=== PATIENT | male | born 1965 | race Caucasian/White ===

== ENCOUNTER 2021-07-13 00:05 | Inpatient (IN) ==
[2021-07-13] MEDS ORDERED: GLUCAGON 1 MG VIAL IM PRN (07:39)
[2021-07-13] MEDS ORDERED: DEXTROSE 10% 250 ML BAG IV PRN (11:17)
[2021-07-13] MEDS: CHLORHEXIDINE 0.12% ORAL RINSE 60 ML BOTTLE SWISH/SPIT SCH ×2 (11:18→22:23)
[2021-07-13] MEDS: SODIUM CHLORIDE 0.9% 1,000 ML IV SCH (11:18)
[2021-07-13 11:23] LABS: Basophils # 0.1 10*3/uL (0.0-0.2); Basophils % 0.6 % (0.0-0.8); Eosinophils # 0.3 10*3/uL (0.0-0.87); Eosinophils % 2.3 % (0.00-10.9); Hematocrit 43.2 VOL% (42.0-52.0); Hemoglobin 14.9 GM/DL (14.0-18.0); Immature Granulocytes Absolute 0.15 #; Lymphocytes # 2.5 10*3/uL (1.4-4.0); Lymphocytes % 17.1 % (21.2-54.2); Mean Corpuscular HGB Conc 34.5 GM/DL (32-36); Mean Corpuscular Volume 93.5 FL (87-102); Mean Platelet Volume 12.1 FL (9.6-12.0); Monocytes % 10.7 % (1.7-12.7); Neutrophils % 68.3 % (38.7-73.9); Platelet Count 133 T/CUMM (130-400); Red Blood Count 4.62 MC/CUMM (3.8-5.5); Red Cell Distribution Width 12.4 % (9.3-17.3); White Blood Count 14.5 T/CUMM (4-12)
[2021-07-13 11:38] LABS: Albumin 3.4 G/DL (3.4-5.0); Bilirubin,Total 0.5 MG/DL (0.20-1.00); Calcium 9.1 MG/DL (8.5-10.1); Osmolality,Calculated 269.7 MOS/KG (273-304); Potassium 3.7 MMOL/L (3.5-5.1); Total Protein 7.5 G/DL (6.4-8.2)
[2021-07-13 11:56] LABS: ABG Base Excess 6.4 MMOL/L (-2.5-2.5); ABG HCO3 30.2 MMOL/L (20-26); ABG Oxygen Saturation 96.3 % (95-100); ABG PCO2 43.4 MM HG (35-48); ABG PH 7.463 (7.35-7.45); ABG PO2 80.5 MM HG (80-95); ABG TCO2 26.3 MMOL/L (23-27)
[2021-07-13] MEDS ORDERED: ALUMINUM/MAGNES/SIMETH MAX STR 30 ML UDCUP PO PRN (12:15)
[2021-07-13] MEDS ORDERED: diphenhydrAMINE CAP 25 MG CAPSULE PO ONE (13:44)
[2021-07-13] MEDS ORDERED: DIAZEPAM 5 MG TABLET PO ONE ×2 (13:44→17:15)
[2021-07-13] MEDS ORDERED: MIDAZOLAM 2 MG/2 ML VIAL ONE (14:55)
[2021-07-13] MEDS ORDERED: fentaNYL 100 MCG/2 ML VIAL ONE (14:55)
[2021-07-13] MEDS: NITROGLYCERIN 2% OINT 1 INCH/GM PACK TOP SCH ×2 (15:47→18:20)
[2021-07-13] MEDS: CHLORHEXIDINE 4% SOLN 118 ML BOTTLE TOP SCH ×2 (16:13→22:24)
[2021-07-13] MEDS ORDERED: HEPARIN 5,000 UNIT/1 ML VIAL IV ONE (19:00)
[2021-07-13] MEDS ORDERED: HEPARIN DRIP 25,000 UNITS/500 ML PREMIX IV SCH (20:00)
[2021-07-13] MEDS: carvediloL 3.125 MG TABLET PO SCH (21:08)
[2021-07-13] MEDS: ASPIRIN CHEW 81 MG TABLET PO SCH (21:09)
[2021-07-13] MEDS: BENZONATATE 100 MG CAPSULE PO PRN (21:51)
[2021-07-14] MEDS: ALBUTEROL/IPRATROPIUM 3 ML NEB RESP TX SCH ×4 (01:14→19:45)
[2021-07-14] MEDS: NITROGLYCERIN 2% OINT 1 INCH/GM PACK TOP SCH ×2 (02:01→06:51)
[2021-07-14] MEDS ORDERED: PAPAVERINE 60 MG/2 ML VIAL ONE (04:19)
[2021-07-14] MEDS ORDERED: VANCOMYCIN 500 MG VIAL ONE (04:20)
[2021-07-14] MEDS ORDERED: VANCOMYCIN 1,000 MG VIAL ONE (04:20)
[2021-07-14] MEDS ORDERED: CEFUROXIME INJ 1,500 MG in SODIUM CHLORIDE 0.9% 100 ML IV ONE (05:00)
[2021-07-14 05:16] LABS: Basophils # 0.1 10*3/uL (0.0-0.2); Basophils % 0.6 % (0.0-0.8); Eosinophils # 0.5 10*3/uL (0.0-0.87); Eosinophils % 3.8 % (0.00-10.9); Hematocrit 41.7 VOL% (42.0-52.0); Immature Granulocytes Absolute 0.14 #; Lymphocytes # 4.5 10*3/uL (1.4-4.0); Lymphocytes % 31.6 % (21.2-54.2); Mean Corpuscular HGB Conc 33.6 GM/DL (32-36); Mean Corpuscular Volume 93.5 FL (87-102); Mean Platelet Volume 11.6 FL (9.6-12.0); Monocytes % 9.6 % (1.7-12.7); Neutrophils % 53.4 % (38.7-73.9); Platelet Count 116 T/CUMM (130-400); Red Blood Count 4.46 MC/CUMM (3.8-5.5); Red Cell Distribution Width 12.4 % (9.3-17.3); White Blood Count 14.2 T/CUMM (4-12)
[2021-07-14] MEDS: CHLORHEXIDINE 4% SOLN 118 ML BOTTLE TOP SCH (05:35)
[2021-07-14] MEDS ORDERED: VECURONIUM 10 MG VIAL IV ONE (05:42)
[2021-07-14] MEDS ORDERED: SEVOFLURANE 1 UNIT/15 MINUTE INH ONE ×2 (05:42→12:09)
[2021-07-14] MEDS ORDERED: NITROGLYCERIN DRIP 50 MG/250 ML BOTTLE IV ONE ×2 (05:42→12:09)
[2021-07-14] MEDS ORDERED: MIDAZOLAM 10 MG/2 ML VIAL ONE ×4 (05:43)
[2021-07-14] MEDS ORDERED: SUFentanil 250 MCG/5 ML AMP ONE ×3 (05:43→05:44)
[2021-07-14] MEDS ORDERED: PHENYLEPHRINE 10 MG/1 ML VIAL IV ONE (05:43)
[2021-07-14 05:44] LABS: Blood Urea Nitrogen 35 MG/DL (7-18); Calcium 8.9 MG/DL (8.5-10.1); Carbon Dioxide 28 MMOL/L (21-32); Estimated Glom Filtration Rate 72 ML/MIN; Glucose 116 MG/DL (74-106); Osmolality,Calculated 266.9 MOS/KG (273-304); Potassium 3.6 MMOL/L (3.5-5.1); Sodium 129 MMOL/L (136-145)
[2021-07-14] MEDS ORDERED: ePHEDrine 50 MG/ML VIAL ONE (05:53)
[2021-07-14] MEDS ORDERED: SODIUM CHLORIDE 0.9% 250 ML IV ONE (05:53)
[2021-07-14] MEDS ORDERED: ETOMIDATE 40 MG/20 ML VIAL IV ONE (05:54)
[2021-07-14] MEDS ORDERED: NOREPINEPHRINE 4 MG/4 ML VIAL IV ONE (05:59)
[2021-07-14] MEDS ORDERED: DIAZEPAM 5 MG TABLET PO ONE (06:00)
[2021-07-14] MEDS ORDERED: AMINOCAPROIC ACID 5,000 MG/20 ML VIAL ONE (06:05)
[2021-07-14] MEDS ORDERED: ALBUTEROL 2.5 MG/3 ML NEB RESP TX ONE (06:32)
[2021-07-14] MEDS ORDERED: NITROPRUSSIDE 50 MG/2 ML VIAL ONE (07:16)
[2021-07-14] MEDS ORDERED: PHENYLEPHRINE DRIP 40 MG/250 ML PREMIX IV ONE (07:16)
[2021-07-14 07:36] LABS: ABG Base Excess 2.2 MMOL/L (-2.5-2.5); ABG HCO3 26.8 MMOL/L (20-26); ABG Oxygen Saturation 99.5 % (95-100); ABG PCO2 41.6 MM HG (35-48); ABG PH 7.427 (7.35-7.45); ABG TCO2 28.1 MMOL/L (23-27); Glucose Heart Surgery 99 MG/DL (74-106); Ionized Calcium Arterial 1.07 MMOL/L (1.21-1.46); PCO2 Patient Temp Arterial 41.6 MMHG; PH Patient Temp Arterial 7.427; PO2 Patient Temp Arterial 506.1 MM HG; Patient Temperature 37 CELCIUS; Sodium Heart/CVR 130 MMOL/L (135-145)
[2021-07-14 07:38] LABS: ABG PO2 506.1 MM HG (80-95)
[2021-07-14 08:18] LABS: RBC,Urine 1 /HPF (0-4); Squamous Epithelial Cell,Urine Occasional /HPF (0-10)
[2021-07-14 08:20] LABS: Bilirubin,Urine Negative (Negative); Blood, Urine Negative (Negative); Glucose,Urine (UA) Negative (Negative); Ketones,Urine Negative (Negative); Nitrite,Urine Negative (Negative); Protein,Urine Negative; Urine Appearance Clear (Clear); Urine Color Yellow (Yellow); Urine Specific Gravity 1.025 (1.001-1.035); Urine Urobilinogen 0.2 EU/DL (<2.0)
[2021-07-14 09:02] LABS: Hematocrit Heart Surgery 29.5 PERCENT (42-52); Hemoglobin Heart Surgery 9.5 G/DL (14.0-18.0); PCO2 Patient Temp Venous 44.8 MM HG; PH Patient Temp Venous 7.422; Potassium Heart/CVR 3.9 MMOL/L (3.5-5.1); VBG Base Excess 4.2 MEQ/L (0-4); VBG HCO3 27.9 MEQ/L (24-28); VBG Oxygen Saturation 79.7 %; VBG PCO2 44.8 MMHG (41-51); VBG PH 7.422; VBG Total CO2 26.8 MMOL/L
[2021-07-14] MEDS ORDERED: CALCIUM CHLORIDE 1,000 MG/10 ML VIAL IV ONE (09:13)
[2021-07-14 09:36] LABS: Hemoglobin Heart Surgery 10.8 G/DL (14.0-18.0); PCO2 Patient Temp Venous 33.4 MM HG; PH Patient Temp Venous 7.524; Potassium Heart/CVR 3.8 MMOL/L (3.5-5.1); VBG Base Excess 3.9 MEQ/L (0-4); VBG HCO3 27.6 MEQ/L (24-28); VBG Oxygen Saturation 82.7 %; VBG PCO2 38.1 MMHG (41-51); VBG PH 7.478; VBG PO2 43.2 MMHG (17-40); VBG Total CO2 28.8 MMOL/L
[2021-07-14 10:23] LABS: ABG Base Excess 2.3 MMOL/L (-2.5-2.5); ABG HCO3 26.5 MMOL/L (20-26); ABG PCO2 38.3 MM HG (35-48); ABG PH 7.446 (7.35-7.45); ABG TCO2 23.5 MMOL/L (23-27); Glucose Heart Surgery 216 MG/DL (74-106); Hematocrit Heart Surgery 34.7 PERCENT (42-52); Hemoglobin Heart Surgery 11.2 G/DL (14.0-18.0); Ionized Calcium Arterial 1.09 MMOL/L (1.21-1.46); PCO2 Patient Temp Arterial 38.3 MMHG; PH Patient Temp Arterial 7.446; Patient Temperature 37 CELCIUS; Potassium Heart/CVR 3.7 MMOL/L (3.5-5.1); Sodium Heart/CVR 130 MMOL/L (135-145)
[2021-07-14] MEDS ORDERED: ALBUMIN 25% 25 GM/100 ML VIAL IV ONE (10:33)
[2021-07-14] MEDS ORDERED: LIDOCAINE 2% 5 ML VIAL ONE (10:33)
[2021-07-14] MEDS ORDERED: MAGNESIUM SULFATE 5 GM/10 ML VIAL IV ONE (10:33)
[2021-07-14] MEDS ORDERED: methylPREDNISolone SOD SUC 1,000 MG/8 ML VIAL ONE (10:33)
[2021-07-14] MEDS ORDERED: DEXTROSE 5% KCL 20 MEQ 20 MEQ/1,000 ML BAG IV ONE (10:34)
[2021-07-14] MEDS ORDERED: HEPARIN 10,000 UNIT/10 ML VIAL ONE (10:34)
[2021-07-14] MEDS ORDERED: FUROSEMIDE 20 MG/2 ML VIAL ONE (10:34)
[2021-07-14] MEDS ORDERED: SODIUM BICARBONATE 50 MEQ/50 ML VIAL IV ONE (10:34)
[2021-07-14] MEDS ORDERED: PROTAMINE SULFATE 250 MG/25 ML VIAL IV ONE (10:34)
[2021-07-14] MEDS ORDERED: MANNITOL 100 GM/500 ML BAG IV ONE (10:34)
[2021-07-14] MEDS ORDERED: PROTAMINE SULFATE 50 MG/5 ML VIAL IV ONE (10:34)
[2021-07-14] MEDS ORDERED: MAGNESIUM SULF RIDER 4 GM/100 ML PREMIX IV PRN (10:57)
[2021-07-14] MEDS ORDERED: INSULIN REGULAR 100 UNIT/ML IV ONE (10:57)
[2021-07-14] MEDS ORDERED: POTASSIUM CHLORIDE RIDER 10 MEQ/100 ML PREMIX IV PRN (10:57)
[2021-07-14] MEDS ORDERED: VECURONIUM 10 MG VIAL IV PRN ×2 (10:57)
[2021-07-14] MEDS ORDERED: ONDANSETRON 4 MG/2 ML VIAL IV PRN (10:57)
[2021-07-14] MEDS ORDERED: LACTATED RINGERS 250 ML IV PRN (10:57)
[2021-07-14] MEDS ORDERED: MIDAZOLAM 10 MG/2 ML VIAL IV PRN (10:57)
[2021-07-14] MEDS ORDERED: POTASSIUM CHLORIDE RIDER 20 MEQ/100 ML PREMIX IV PRN (10:57)
[2021-07-14] MEDS ORDERED: INSULIN REGULAR 100 UNIT/ML IV PRN (10:57)
[2021-07-14] MEDS ORDERED: MAGNESIUM SULF RIDER 2 GM/50 ML PREMIX IV PRN (10:57)
[2021-07-14] MEDS ORDERED: ACETAMINOPHEN 650 MG SUPP RECTAL PRN (10:57)
[2021-07-14] MEDS ORDERED: CALCIUM CHLORIDE 1,000 MG/10 ML SYRINGE IV PRN (10:57)
[2021-07-14] MEDS ORDERED: MORPHINE 10 MG/1 ML VIAL IV PRN (10:57)
[2021-07-14] MEDS ORDERED: CHLORHEXIDINE 4% SOLN 118 ML BOTTLE TOP PRN (10:57)
[2021-07-14] MEDS ORDERED: PHENYLEPHRINE DRIP 40 MG/250 ML PREMIX IV PRN (10:57)
[2021-07-14] MEDS ORDERED: NITROPRUSSIDE 100 MG in DEXTROSE 5% 250 ML IV PRN (10:57)
[2021-07-14] MEDS ORDERED: DEXTROSE 10% 250 ML BAG IV PRN ×2 (10:57)
[2021-07-14] MEDS ORDERED: INSULIN REGULAR DRIP 100 ML IV SCH (11:00)
[2021-07-14] MEDS ORDERED: SODIUM CHLORIDE 0.45% 1,000 ML IV SCH (11:00)
[2021-07-14] MEDS: SODIUM CHLORIDE 0.45% 1,000 ML IV SCH (11:42)
[2021-07-14 11:48] LABS: ABG Base Excess 1.9 MMOL/L (-2.5-2.5); ABG HCO3 26.1 MMOL/L (20-26); ABG Oxygen Saturation 97.1 % (95-100); ABG PCO2 41.4 MM HG (35-48); ABG PH 7.416 (7.35-7.45); ABG PO2 91.3 MM HG (80-95); ABG TCO2 23.6 MMOL/L (23-27); Glucose Heart Surgery 177 MG/DL (74-106); Hematocrit Heart Surgery 36.6 PERCENT (42-52); Hemoglobin Heart Surgery 11.9 G/DL (14.0-18.0); Potassium Heart/CVR 3.6 MMOL/L (3.5-5.1)
[2021-07-14 11:52] LABS: Basophils # 0.1 10*3/uL (0.0-0.2); Basophils % 0.5 % (0.0-0.8); Eosinophils # 0.2 10*3/uL (0.0-0.87); Eosinophils % 2.2 % (0.00-10.9); Hematocrit 33.9 VOL% (42.0-52.0); Immature Granulocytes % 1.1 %; Immature Granulocytes Absolute 0.12 #; Lymphocytes # 1.5 10*3/uL (1.4-4.0); Mean Corpuscular HGB Conc 35.1 GM/DL (32-36); Mean Corpuscular Volume 91.6 FL (87-102); Monocytes % 10.2 % (1.7-12.7); Red Cell Distribution Width 12.5 % (9.3-17.3); White Blood Count 10.8 T/CUMM (4-12)
[2021-07-14 11:58] LABS: INR 1.1; PT Patient Result 12.4 SECS (10.5-12.0); Partial Thromboplastin Time 28.2 SECS (23.8-32.1)
[2021-07-14] MEDS: LACTATED RINGERS 1,000 ML IV PRN ×5 (12:00→19:10)
[2021-07-14 12:06] LABS: Hemoglobin 11.9 GM/DL (14.0-18.0); Platelet Count 73 T/CUMM (130-400)
[2021-07-14] MEDS: ASPIRIN CHEW 81 MG TABLET PO SCH (12:08)
[2021-07-14] MEDS ORDERED: HEPARIN/NACL 0.9% 2 UNITS/ML 1,000 UNIT/500 ML BAG IV ONE (12:09)
[2021-07-14] MEDS ORDERED: SODIUM CHLORIDE 0.9% 1,000 ML IV ONE (12:09)
[2021-07-14] MEDS ORDERED: LACTATED RINGERS 1,000 ML IV ONE (12:09)
[2021-07-14] MEDS: PANTOPRAZOLE 40 MG VIAL IV SCH (12:10)
[2021-07-14 12:57] LABS: CKMB % 9.7 %
[2021-07-14 13:01] LABS: Albumin 2.6 G/DL (3.4-5.0); Bilirubin,Total 0.8 MG/DL (0.20-1.00); Calcium 7.4 MG/DL (8.5-10.1); Osmolality,Calculated 277.2 MOS/KG (273-304); Potassium 4.4 MMOL/L (3.5-5.1); Total Protein 5.4 G/DL (6.4-8.2)
[2021-07-14 13:03] LABS: High Sensitive Troponin I* 5124.1 ng/L (0-78)
[2021-07-14] MEDS: ALBUMIN 5% 12.5 GM/250 ML VIAL IV PRN ×3 (13:32→22:16)
[2021-07-14] MEDS ORDERED: AMIODARONE INJ 100 MG in DEXTROSE 5% 100 ML IV ONE (13:34)
[2021-07-14 13:56] LABS: ABG Base Excess 0.7 MMOL/L (-2.5-2.5); ABG Oxygen Saturation 97.3 % (95-100); ABG PCO2 43.3 MM HG (35-48); ABG PH 7.386 (7.35-7.45); ABG TCO2 23.2 MMOL/L (23-27); Glucose Heart Surgery 209 MG/DL (74-106); Hematocrit Heart Surgery 35.1 PERCENT (42-52); Hemoglobin Heart Surgery 11.4 G/DL (14.0-18.0); Potassium Heart/CVR 4.9 MMOL/L (3.5-5.1)
[2021-07-14] MEDS ORDERED: AMIODARONE INJ 450 MG in DEXTROSE 5% 241 ML IV SCH (14:00)
[2021-07-14] MEDS: MIDAZOLAM 2 MG/2 ML VIAL IV PRN ×2 (15:08→16:44)
[2021-07-14 15:25] LABS: ABG Base Excess -1.2 MMOL/L (-2.5-2.5); ABG HCO3 23.4 MMOL/L (20-26); ABG Oxygen Saturation 97.3 % (95-100); ABG PH 7.328 (7.35-7.45); ABG TCO2 22.8 MMOL/L (23-27); Glucose Heart Surgery 148 MG/DL (74-106); Potassium Heart/CVR 4.5 MMOL/L (3.5-5.1)
[2021-07-14 16:26] LABS: ABG Base Excess -0.1 MMOL/L (-2.5-2.5); ABG HCO3 24.4 MMOL/L (20-26); ABG Oxygen Saturation 96.9 % (95-100); ABG PCO2 43.1 MM HG (35-48); ABG PH 7.376 (7.35-7.45); ABG PO2 92.2 MM HG (80-95); ABG TCO2 22.9 MMOL/L (23-27); Glucose Heart Surgery 122 MG/DL (74-106); Hematocrit Heart Surgery 31.8 PERCENT (42-52); Hemoglobin Heart Surgery 10.3 G/DL (14.0-18.0); Potassium Heart/CVR 4.5 MMOL/L (3.5-5.1)
[2021-07-14 16:29] LABS: VBG Base Excess 0.5 MEQ/L (0-4); VBG HCO3 24.1 MEQ/L (24-28); VBG PCO2 51.9 MMHG (41-51); VBG PH 7.327; VBG PO2 34.2 MMHG (17-40); VBG Total CO2 25.1 MMOL/L
[2021-07-14] MEDS ORDERED: MIDAZOLAM 2 MG/2 ML VIAL IV ONE (17:20)
[2021-07-14] MEDS ORDERED: DEXMEDETOMIDINE 200 MCG in SODIUM CHLORIDE 0.9% 48 ML IV PRN (18:13)
[2021-07-14] MEDS: CEFUROXIME INJ 1,500 MG in SODIUM CHLORIDE 0.9% 100 ML IV SCH (18:19)
[2021-07-14 20:13] LABS: ABG Base Excess 0.4 MMOL/L (-2.5-2.5); ABG HCO3 24.7 MMOL/L (20-26); ABG Oxygen Saturation 96.3 % (95-100); ABG PCO2 42.8 MM HG (35-48); ABG PH 7.384 (7.35-7.45); ABG PO2 85.2 MM HG (80-95); ABG TCO2 23.1 MMOL/L (23-27); Glucose Heart Surgery 115 MG/DL (74-106); Hematocrit Heart Surgery 32.7 PERCENT (42-52); Hemoglobin Heart Surgery 10.6 G/DL (14.0-18.0); Potassium Heart/CVR 4.6 MMOL/L (3.5-5.1)
[2021-07-14 21:42] LABS: ABG Base Excess -0.3 MMOL/L (-2.5-2.5); ABG HCO3 24.1 MMOL/L (20-26); ABG Oxygen Saturation 96.2 % (95-100); ABG PCO2 47.2 MM HG (35-48); ABG PH 7.345 (7.35-7.45); ABG PO2 88.8 MM HG (80-95); ABG TCO2 23.3 MMOL/L (23-27); Glucose Heart Surgery 114 MG/DL (74-106); Hematocrit Heart Surgery 33.4 PERCENT (42-52); Hemoglobin Heart Surgery 10.8 G/DL (14.0-18.0); Potassium Heart/CVR 4.7 MMOL/L (3.5-5.1)
[2021-07-14] MEDS: CHLORHEXIDINE 0.12% ORAL RINSE 60 ML BOTTLE SWISH/SPIT SCH (21:58)
[2021-07-14] MEDS: AMIODARONE INJ 450 MG in DEXTROSE 5% 241 ML IV SCH ×2 (22:05→22:50)
[2021-07-14 23:46] LABS: ABG Base Excess -0.7 MMOL/L (-2.5-2.5); ABG HCO3 23.9 MMOL/L (20-26); ABG Oxygen Saturation 97.2 % (95-100); ABG PCO2 39.5 MM HG (35-48); ABG PO2 103.7 MM HG (80-95); ABG TCO2 25.1 MMOL/L (23-27); Glucose Heart Surgery 105 MG/DL (74-106); Hemoglobin Heart Surgery 10.7 G/DL (14.0-18.0); Potassium Heart/CVR 4.6 MMOL/L (3.5-5.1)
[2021-07-15 00:25] LABS: ABG Base Excess -0.4 MMOL/L (-2.5-2.5); ABG Oxygen Saturation 95.1 % (95-100); ABG PCO2 42.9 MM HG (35-48); ABG PH 7.372 (7.35-7.45); ABG PO2 79.4 MM HG (80-95); ABG TCO2 22.7 MMOL/L (23-27); Glucose Heart Surgery 115 MG/DL (74-106); Hematocrit Heart Surgery 31.7 PERCENT (42-52); Hemoglobin Heart Surgery 10.3 G/DL (14.0-18.0); Potassium Heart/CVR 4.6 MMOL/L (3.5-5.1)
[2021-07-15] MEDS: ALBUTEROL/IPRATROPIUM 3 ML NEB RESP TX SCH ×4 (01:35→20:25)
[2021-07-15 02:15] LABS: ABG Base Excess -1.1 MMOL/L (-2.5-2.5); ABG HCO3 23.5 MMOL/L (20-26); ABG Oxygen Saturation 97.5 % (95-100); ABG PCO2 41.7 MM HG (35-48); ABG PH 7.371 (7.35-7.45); ABG TCO2 21.9 MMOL/L (23-27); Glucose Heart Surgery 116 MG/DL (74-106); Hematocrit Heart Surgery 32.4 PERCENT (42-52); Hemoglobin Heart Surgery 10.5 G/DL (14.0-18.0); Potassium Heart/CVR 4.7 MMOL/L (3.5-5.1)
[2021-07-15 02:34] LABS: CKMB % 6.7 %
[2021-07-15 02:35] LABS: High Sensitive Troponin I* 4366.3 ng/L (0-78)
[2021-07-15 03:22] LABS: ABG Base Excess -1.6 MMOL/L (-2.5-2.5); ABG Oxygen Saturation 97.3 % (95-100); ABG PCO2 40.3 MM HG (35-48); ABG PH 7.373 (7.35-7.45); ABG PO2 94.9 MM HG (80-95); ABG TCO2 21.3 MMOL/L (23-27); Glucose Heart Surgery 121 MG/DL (74-106); Hematocrit Heart Surgery 31.6 PERCENT (42-52); Hemoglobin Heart Surgery 10.2 G/DL (14.0-18.0); Potassium Heart/CVR 4.5 MMOL/L (3.5-5.1)
[2021-07-15 03:32] LABS: Basophils % 0.1 % (0.0-0.8); Immature Granulocytes Absolute 0.14 #; Lymphocytes % 7.1 % (21.2-54.2); Mean Corpuscular HGB Conc 33.3 GM/DL (32-36); Mean Corpuscular Volume 94.9 FL (87-102); Mean Platelet Volume 12.7 FL (9.6-12.0); Neutrophils % 83.8 % (38.7-73.9); Platelet Count 73 T/CUMM (130-400); Red Blood Count 3.16 MC/CUMM (3.8-5.5); Red Cell Distribution Width 12.5 % (9.3-17.3); White Blood Count 13.9 T/CUMM (4-12)
[2021-07-15 03:47] LABS: Albumin 3.2 G/DL (3.4-5.0); Bilirubin,Direct 0.19 MG/DL (0.0-0.20); Bilirubin,Total 0.7 MG/DL (0.20-1.00); Calcium 7.7 MG/DL (8.5-10.1); Osmolality,Calculated 276.1 MOS/KG (273-304); Potassium 4.6 MMOL/L (3.5-5.1); Total Protein 6.1 G/DL (6.4-8.2)
[2021-07-15 04:12] LABS: ABG Base Excess -2.7 MMOL/L (-2.5-2.5); ABG HCO3 21.7 MMOL/L (20-26); ABG Oxygen Saturation 96.2 % (95-100); ABG PCO2 36.1 MM HG (35-48); ABG PH 7.396 (7.35-7.45); ABG PO2 86.8 MM HG (80-95); ABG TCO2 22.8 MMOL/L (23-27); Glucose Heart Surgery 124 MG/DL (74-106); Potassium Heart/CVR 4.6 MMOL/L (3.5-5.1)
[2021-07-15] MEDS ORDERED: FUROSEMIDE 40 MG/4 ML VIAL IV ONE (04:23)
[2021-07-15 04:31] LABS: Hypochromia Slight; Microcytosis Slight; Platelet Estimate Decreased
[2021-07-15] MEDS: CEFUROXIME INJ 1,500 MG in SODIUM CHLORIDE 0.9% 100 ML IV SCH ×2 (07:01→18:07)
[2021-07-15] MEDS: SODIUM CHLORIDE 0.9% 1,000 ML IV SCH (08:06)
[2021-07-15] MEDS: CHLORHEXIDINE 0.12% ORAL RINSE 60 ML BOTTLE SWISH/SPIT SCH ×3 (08:06→21:50)
[2021-07-15] MEDS: carvediloL 3.125 MG TABLET PO SCH (08:06)
[2021-07-15] MEDS: INSULIN REGULAR 100 UNIT/ML SUBCUT SCH ×4 (08:34→21:50)
[2021-07-15] MEDS: PANTOPRAZOLE 40 MG VIAL IV SCH (09:58)
[2021-07-15] MEDS ORDERED: ASPIRIN 325 MG TABLET PO SCH (10:30)
[2021-07-15] MEDS: AMIODARONE 200 MG TABLET PO SCH ×2 (11:16→21:47)
[2021-07-15] MEDS: METOPROLOL TARTRATE 25 MG TABLET PO SCH ×2 (11:16→21:47)
[2021-07-15] MEDS: AMIODARONE INJ 450 MG in DEXTROSE 5% 241 ML IV SCH (13:13)
[2021-07-15] MEDS: ASPIRIN CHEW 81 MG TABLET PO SCH (13:17)
[2021-07-15 14:20] LABS: CKMB % 2.9 %; High Sensitive Troponin I* 2753.6 ng/L (0-78)
[2021-07-15] MEDS: BENZONATATE 100 MG CAPSULE PO PRN (21:47)
[2021-07-15] MEDS: ATORVASTATIN 40 MG TABLET PO SCH (21:47)
[2021-07-16] MEDS: ALBUTEROL/IPRATROPIUM 3 ML NEB RESP TX SCH ×4 (00:30→19:35)
[2021-07-16 04:24] LABS: Basophils % 0.1 % (0.0-0.8); Eosinophils % 0.1 % (0.00-10.9); Hematocrit 30.9 VOL% (42.0-52.0); Hemoglobin 10.3 GM/DL (14.0-18.0); Immature Granulocytes % 0.8 %; Immature Granulocytes Absolute 0.13 #; Lymphocytes # 2.3 10*3/uL (1.4-4.0); Lymphocytes % 14.3 % (21.2-54.2); Mean Corpuscular HGB Conc 33.3 GM/DL (32-36); Mean Corpuscular Volume 95.1 FL (87-102); Mean Platelet Volume 12.4 FL (9.6-12.0); Monocytes % 11.4 % (1.7-12.7); Neutrophils % 73.3 % (38.7-73.9); Platelet Count 77 T/CUMM (130-400); Red Blood Count 3.25 MC/CUMM (3.8-5.5); Red Cell Distribution Width 12.6 % (9.3-17.3); White Blood Count 15.8 T/CUMM (4-12)
[2021-07-16 04:46] LABS: Hypochromia Slight; Microcytosis Slight; Platelet Estimate Decreased
[2021-07-16 04:49] LABS: Albumin 2.8 G/DL (3.4-5.0); Bilirubin,Direct 0.18 MG/DL (0.0-0.20); Bilirubin,Total 0.6 MG/DL (0.20-1.00); Osmolality,Calculated 267.7 MOS/KG (273-304); Potassium 4.6 MMOL/L (3.5-5.1); Total Protein 5.9 G/DL (6.4-8.2)
[2021-07-16] MEDS: METOPROLOL SUCCINATE XL 25 MG TABLET PO SCH (08:07)
[2021-07-16] MEDS: CHLORHEXIDINE 0.12% ORAL RINSE 60 ML BOTTLE SWISH/SPIT SCH ×3 (08:07→20:41)
[2021-07-16] MEDS: PANTOPRAZOLE 40 MG VIAL IV SCH (08:07)
[2021-07-16] MEDS: FUROSEMIDE 40 MG/4 ML VIAL IV SCH (08:07)
[2021-07-16] MEDS: AMIODARONE 200 MG TABLET PO SCH (08:07)
[2021-07-16] MEDS ORDERED: POTASSIUM CHLORIDE 20 MEQ TABLET PO PRN (08:26)
[2021-07-16] MEDS ORDERED: ACETAMINOPHEN 325 MG TABLET PO PRN (08:26)
[2021-07-16] MEDS ORDERED: ZALEPLON 5 MG CAPSULE PO PRN (08:26)
[2021-07-16] MEDS ORDERED: MAGNESIUM SULF RIDER 2 GM/50 ML PREMIX IV PRN (08:26)
[2021-07-16] MEDS ORDERED: MAGNESIUM SULF RIDER 4 GM/100 ML PREMIX IV PRN (08:26)
[2021-07-16] MEDS ORDERED: MAGNESIUM HYDROXIDE SUSP 30 ML UDCUP PO PRN (08:26)
[2021-07-16] MEDS ORDERED: ALUMINUM/MAGNES/SIMETH MAX STR 30 ML UDCUP PO PRN (08:26)
[2021-07-16] MEDS ORDERED: DEXTROSE 10% 250 ML BAG IV PRN (08:26)
[2021-07-16] MEDS ORDERED: GLUCAGON 1 MG VIAL IM PRN (08:26)
[2021-07-16] MEDS ORDERED: ONDANSETRON 4 MG/2 ML VIAL IV PRN (08:26)
[2021-07-16] MEDS: PANTOPRAZOLE 40 MG TABLET PO SCH (08:47)
[2021-07-16] MEDS: BUDESONIDE/FORMOTEROL 160-4.5 INHALER 6 GM INH SCH (08:47)
[2021-07-16] MEDS: FERROUS SULFATE 325 MG TABLET PO SCH (08:47)
[2021-07-16] MEDS: DOCUSATE SODIUM 100 MG CAPSULE PO SCH (08:47)
[2021-07-16] MEDS: INSULIN REGULAR 100 UNIT/ML SUBCUT SCH (08:48)
[2021-07-16] MEDS ORDERED: AMIODARONE INJ 150 MG in DEXTROSE 5% 100 ML IV ONE (12:04)
[2021-07-16] MEDS ORDERED: AMIODARONE 150 MG/3 ML VIAL ONE (12:06)
[2021-07-16] MEDS ORDERED: NITROGLYCERIN SL 0.4 MG TABLET SL PRN (12:27)
[2021-07-16] MEDS ORDERED: AMIODARONE INJ 450 MG in DEXTROSE 5% 241 ML IV SCH (12:30)
[2021-07-16] MEDS: ASPIRIN EC 81 MG TABLET PO SCH (13:11)
[2021-07-16] MEDS: VALSARTAN 80 MG TABLET PO SCH (13:11)
[2021-07-16] MEDS: ATORVASTATIN 40 MG TABLET PO SCH (20:41)
[2021-07-16] MEDS: SODIUM CHLORIDE 0.45% 1,000 ML IV SCH (22:55)
[2021-07-17] MEDS: ALBUTEROL/IPRATROPIUM 3 ML NEB RESP TX SCH ×4 (01:20→19:40)
[2021-07-17 05:35] LABS: Basophils % 0.3 % (0.0-0.8); Hematocrit 30.4 VOL% (42.0-52.0); Hemoglobin 10.1 GM/DL (14.0-18.0); Immature Granulocytes % 1.8 %; Immature Granulocytes Absolute 0.29 #; Lymphocytes % 12.3 % (21.2-54.2); Mean Corpuscular HGB Conc 33.2 GM/DL (32-36); Mean Corpuscular Volume 94.7 FL (87-102); Mean Platelet Volume 12.9 FL (9.6-12.0); Monocytes % 9.8 % (1.7-12.7); Neutrophils % 75.8 % (38.7-73.9); Platelet Count 90 T/CUMM (130-400); Red Blood Count 3.21 MC/CUMM (3.8-5.5); Red Cell Distribution Width 12.4 % (9.3-17.3)
[2021-07-17] MEDS: oxyCODONE/ACETAMINOPHEN 5-325 MG TABLET PO PRN (05:46)
[2021-07-17 05:48] LABS: Alanine Aminotransferase 38 U/L (16-61); Albumin 2.6 G/DL (3.4-5.0); Alkaline Phosphatase 51 U/L (45-117); Aspartate Amino Transferase 17 U/L (0-37); Bilirubin,Indirect 0.3 MG/DL (0.0-1.0); Total Protein 5.5 G/DL (6.4-8.2)
[2021-07-17 06:01] LABS: Albumin 2.6 G/DL (3.4-5.0); Bilirubin,Direct 0.18 MG/DL (0.0-0.20); Bilirubin,Total 0.4 MG/DL (0.20-1.00); Calcium 8.6 MG/DL (8.5-10.1); Osmolality,Calculated 267.7 MOS/KG (273-304); Potassium 4.3 MMOL/L (3.5-5.1)
[2021-07-17 06:29] LABS: Platelet Estimate Decreased
[2021-07-17] MEDS: ASPIRIN EC 81 MG TABLET PO SCH (10:44)
[2021-07-17] MEDS: FERROUS SULFATE 325 MG TABLET PO SCH (10:45)
[2021-07-17] MEDS: AMIODARONE 200 MG TABLET PO SCH ×2 (10:45→22:51)
[2021-07-17] MEDS: PANTOPRAZOLE 40 MG TABLET PO SCH (10:45)
[2021-07-17] MEDS: VALSARTAN 80 MG TABLET PO SCH (10:45)
[2021-07-17] MEDS: DOCUSATE SODIUM 100 MG CAPSULE PO SCH (10:45)
[2021-07-17] MEDS: METOPROLOL SUCCINATE XL 25 MG TABLET PO SCH (10:46)
[2021-07-17] MEDS: CHLORHEXIDINE 0.12% ORAL RINSE 60 ML BOTTLE SWISH/SPIT SCH ×2 (10:46→22:52)
[2021-07-17] MEDS: ASCORBIC ACID 500 MG TABLET PO SCH ×2 (10:46→22:51)
[2021-07-17] MEDS: FUROSEMIDE 40 MG/4 ML VIAL IV SCH (10:52)
[2021-07-17] MEDS: BUDESONIDE/FORMOTEROL 160-4.5 INHALER 6 GM INH SCH (11:13)
[2021-07-17] MEDS: ATORVASTATIN 40 MG TABLET PO SCH (22:51)
[2021-07-18] MEDS: ALBUTEROL/IPRATROPIUM 3 ML NEB RESP TX SCH ×4 (00:14→18:52)
[2021-07-18 06:30] LABS: Basophils # 0.1 10*3/uL (0.0-0.2); Basophils % 0.4 % (0.0-0.8); Eosinophils # 0.4 10*3/uL (0.0-0.87); Eosinophils % 2.2 % (0.00-10.9); Hematocrit 32.4 VOL% (42.0-52.0); Hemoglobin 10.7 GM/DL (14.0-18.0); Immature Granulocytes % 2.9 %; Immature Granulocytes Absolute 0.46 #; Lymphocytes # 4.6 10*3/uL (1.4-4.0); Lymphocytes % 28.8 % (21.2-54.2); Mean Corpuscular Volume 95.9 FL (87-102); Mean Platelet Volume 11.7 FL (9.6-12.0); Monocytes % 10.1 % (1.7-12.7); NRBC # 0.02 10*3/uL; Neutrophils % 55.6 % (38.7-73.9); Platelet Count 143 T/CUMM (130-400); Red Blood Count 3.38 MC/CUMM (3.8-5.5); Red Cell Distribution Width 12.8 % (9.3-17.3); White Blood Count 16.1 T/CUMM (4-12)
[2021-07-18] MEDS: oxyCODONE/ACETAMINOPHEN 5-325 MG TABLET PO PRN (06:38)
[2021-07-18 06:43] LABS: Osmolality,Calculated 277.8 MOS/KG (273-304)
[2021-07-18 06:49] LABS: Alanine Aminotransferase 55 U/L (16-61); Albumin 2.4 G/DL (3.4-5.0); Alkaline Phosphatase 72 U/L (45-117); Aspartate Amino Transferase 25 U/L (0-37); Bilirubin,Direct < 0.100 MG/DL (0.0-0.20); Bilirubin,Indirect 1.3 MG/DL (0.0-1.0); Blood Urea Nitrogen 24 MG/DL (7-18); Calcium 8.1 MG/DL (8.5-10.1); Carbon Dioxide 31 MMOL/L (21-32); Estimated Glom Filtration Rate 98 ML/MIN; Glucose 120 MG/DL (74-106); Sodium 136 MMOL/L (136-145)
[2021-07-18] MEDS: CHLORHEXIDINE 0.12% ORAL RINSE 60 ML BOTTLE SWISH/SPIT SCH ×2 (10:51→20:57)
[2021-07-18] MEDS: BUDESONIDE/FORMOTEROL 160-4.5 INHALER 6 GM INH SCH (10:51)
[2021-07-18] MEDS: VALSARTAN 80 MG TABLET PO SCH (10:52)
[2021-07-18] MEDS: AMIODARONE 200 MG TABLET PO SCH ×2 (10:52→20:56)
[2021-07-18] MEDS: FERROUS SULFATE 325 MG TABLET PO SCH (10:53)
[2021-07-18] MEDS: ASPIRIN EC 81 MG TABLET PO SCH (10:53)
[2021-07-18] MEDS: PANTOPRAZOLE 40 MG TABLET PO SCH (10:53)
[2021-07-18] MEDS: METOPROLOL SUCCINATE XL 25 MG TABLET PO SCH (10:53)
[2021-07-18] MEDS: ASCORBIC ACID 500 MG TABLET PO SCH ×2 (10:53→20:57)
[2021-07-18] MEDS: DOCUSATE SODIUM 100 MG CAPSULE PO SCH (10:53)
[2021-07-18] MEDS: LACTULOSE 20 GM/30 ML UDCUP PO PRN (14:58)
[2021-07-18] MEDS: ATORVASTATIN 40 MG TABLET PO SCH (20:56)
[2021-07-19] MEDS: ALBUTEROL/IPRATROPIUM 3 ML NEB RESP TX SCH ×4 (00:45→19:24)
[2021-07-19 06:31] LABS: Basophils # 0.1 10*3/uL (0.0-0.2); Basophils % 0.8 % (0.0-0.8); Eosinophils # 0.6 10*3/uL (0.0-0.87); Eosinophils % 4.3 % (0.00-10.9); Hematocrit 30.9 VOL% (42.0-52.0); Hemoglobin 10.2 GM/DL (14.0-18.0); Immature Granulocytes % 4.1 %; Immature Granulocytes Absolute 0.58 #; Lymphocytes # 4.2 10*3/uL (1.4-4.0); Lymphocytes % 29.5 % (21.2-54.2); Mean Corpuscular Volume 95.4 FL (87-102); Mean Platelet Volume 11.7 FL (9.6-12.0); Monocytes % 8.9 % (1.7-12.7); Neutrophils % 52.4 % (38.7-73.9); Red Blood Count 3.24 MC/CUMM (3.8-5.5); Red Cell Distribution Width 12.7 % (9.3-17.3); White Blood Count 14.1 T/CUMM (4-12)
[2021-07-19 06:35] LABS: Platelet Count 129 T/CUMM (130-400)
[2021-07-19 06:53] LABS: Eosinophils 4 % (0-10); Hypochromia Slight; Lymphocytes 27 % (20-55); Microcytosis Slight; Platelet Estimate Normal; Segmented Neutrophils 60 % (50-85); Total Cells Counted 100
[2021-07-19 07:02] LABS: Calcium 7.7 MG/DL (8.5-10.1); Potassium 4.2 MMOL/L (3.5-5.1)
[2021-07-19 07:05] LABS: Albumin 2.2 G/DL (3.4-5.0); Bilirubin,Total 0.5 MG/DL (0.20-1.00); Calcium 8.1 MG/DL (8.5-10.1); Osmolality,Calculated 271.2 MOS/KG (273-304); Potassium 3.9 MMOL/L (3.5-5.1); Total Protein 5.5 G/DL (6.4-8.2)
[2021-07-19] MEDS: CHLORHEXIDINE 0.12% ORAL RINSE 60 ML BOTTLE SWISH/SPIT SCH ×2 (10:06→21:11)
[2021-07-19] MEDS: BUDESONIDE/FORMOTEROL 160-4.5 INHALER 6 GM INH SCH (10:06)
[2021-07-19] MEDS: VALSARTAN 80 MG TABLET PO SCH (10:07)
[2021-07-19] MEDS: LACTULOSE 20 GM/30 ML UDCUP PO PRN (10:07)
[2021-07-19] MEDS: POLYETHYLENE GLYCOL POWDER 17 GM PACK PO SCH (10:07)
[2021-07-19] MEDS: ASCORBIC ACID 500 MG TABLET PO SCH ×2 (10:07→21:10)
[2021-07-19] MEDS: FUROSEMIDE 40 MG TABLET PO SCH (10:08)
[2021-07-19] MEDS: ASPIRIN EC 81 MG TABLET PO SCH (10:08)
[2021-07-19] MEDS: PANTOPRAZOLE 40 MG TABLET PO SCH (10:08)
[2021-07-19] MEDS: DOCUSATE SODIUM 100 MG CAPSULE PO SCH (10:08)
[2021-07-19] MEDS: FERROUS SULFATE 325 MG TABLET PO SCH (10:08)
[2021-07-19] MEDS: AMIODARONE 200 MG TABLET PO SCH ×2 (10:08→21:11)
[2021-07-19] MEDS: METOPROLOL SUCCINATE XL 25 MG TABLET PO SCH (10:08)
[2021-07-19] MEDS: ATORVASTATIN 40 MG TABLET PO SCH (21:10)
[2021-07-20 06:11] LABS: Basophils # 0.1 10*3/uL (0.0-0.2); Basophils % 0.7 % (0.0-0.8); Eosinophils # 0.7 10*3/uL (0.0-0.87); Eosinophils % 4.5 % (0.00-10.9); Hematocrit 31.3 VOL% (42.0-52.0); Hemoglobin 10.4 GM/DL (14.0-18.0); Immature Granulocytes % 3.9 %; Immature Granulocytes Absolute 0.57 #; Lymphocytes # 3.7 10*3/uL (1.4-4.0); Lymphocytes % 25.7 % (21.2-54.2); Mean Corpuscular HGB Conc 33.2 GM/DL (32-36); Mean Corpuscular Volume 94.6 FL (87-102); Mean Platelet Volume 11.6 FL (9.6-12.0); Monocytes % 8.3 % (1.7-12.7); Neutrophils % 56.9 % (38.7-73.9); Platelet Count 152 T/CUMM (130-400); Red Blood Count 3.31 MC/CUMM (3.8-5.5); Red Cell Distribution Width 12.8 % (9.3-17.3); White Blood Count 14.5 T/CUMM (4-12)
[2021-07-20 06:30] LABS: Alanine Aminotransferase 44 U/L (16-61); Albumin 2.3 G/DL (3.4-5.0); Alkaline Phosphatase 60 U/L (45-117); Aspartate Amino Transferase 20 U/L (0-37); Bilirubin,Indirect 0.4 MG/DL (0.0-1.0); Blood Urea Nitrogen 20 MG/DL (7-18); Carbon Dioxide 28 MMOL/L (21-32); Eosinophils 8 % (0-10); Estimated Glom Filtration Rate 98 ML/MIN; Glucose 107 MG/DL (74-106); Hypochromia 1+; Lymphocytes 24 % (20-55); Microcytosis 1+; Osmolality,Calculated 270.2 MOS/KG (273-304); Platelet Estimate Adequate; Potassium 4.1 MMOL/L (3.5-5.1); Segmented Neutrophils 53 % (50-85); Sodium 134 MMOL/L (136-145); Total Cells Counted 100; Total Protein 5.7 G/DL (6.4-8.2)
[2021-07-20] MEDS: ALBUTEROL/IPRATROPIUM 3 ML NEB RESP TX SCH ×2 (08:17→13:11)
[2021-07-20 09:00] VITALS: BP 95/59
[2021-07-20] MEDS: VALSARTAN 80 MG TABLET PO SCH (09:09)
[2021-07-20] MEDS: DOCUSATE SODIUM 100 MG CAPSULE PO SCH (09:10)
[2021-07-20] MEDS: METOPROLOL SUCCINATE XL 25 MG TABLET PO SCH (09:10)
[2021-07-20] MEDS: FUROSEMIDE 40 MG TABLET PO SCH (09:10)
[2021-07-20] MEDS: PANTOPRAZOLE 40 MG TABLET PO SCH (09:10)
[2021-07-20] MEDS: AMIODARONE 200 MG TABLET PO SCH (09:10)
[2021-07-20] MEDS: ASCORBIC ACID 500 MG TABLET PO SCH (09:10)
[2021-07-20] MEDS: ASPIRIN EC 81 MG TABLET PO SCH (09:10)
[2021-07-20] MEDS: POLYETHYLENE GLYCOL POWDER 17 GM PACK PO SCH (09:10)
[2021-07-20] MEDS: FERROUS SULFATE 325 MG TABLET PO SCH (09:10)
[2021-07-20] MEDS: BUDESONIDE/FORMOTEROL 160-4.5 INHALER 6 GM INH SCH (09:12)
[2021-07-20] MEDS: CHLORHEXIDINE 0.12% ORAL RINSE 60 ML BOTTLE SWISH/SPIT SCH (09:13)
== END 2021-07-20 14:25 | disposition home health service (06) | DRG 236 ==
LOC: N.ICU 10:43 → N.CVR 07-14 07:09 → N.TELES 07-16 15:37